=== PATIENT | male | born 1980 | race Caucasian/White ===

== ENCOUNTER 2016-09-28 13:29 | Emergency (ER) | payer MEDICAID ==
[~2016-09-28] VITALS: Ht 175.3 cm; Wt 86.0 kg
[2016-09-28] MEDS ORDERED: KETOROLAC TROMETHAMINE 60 MG/2 ML VIAL IM ONE (17:00)
[2016-09-28 17:15] VITALS: BP 122/72
== END 2016-09-28 17:41 | disposition home or self-care (01) ==
LOC: EMS 13:32
DX: S39.012A Strain of muscle, fascia and tendon of lower back, initial encounter (principal); X58.XXXA Exposure to other specified factors, initial encounter; Y93.89 Activity, other specified; Y92.89 Other specified places as the place of occurrence of the external cause; Y99.8 Other external cause status
CPT/HCPCS: 96372; 99283; J1885